=== PATIENT | male | born 1970 | race Caucasian/White ===

== ENCOUNTER 2020-12-06 11:31 | Outpatient (REF) | payer OTHER, SELFPAY | END 2020-12-06 11:32 | disposition home or self-care (01) | LOC: HO.LAB 11:31 | PROVIDERS: Visit Provider Nurse Practitioner Family | DX: Z20.822 Contact with and (suspected) exposure to COVID-19 (principal) | CPT/HCPCS: 36415; U0003 ==

== ENCOUNTER 2021-09-14 14:02 | Outpatient (REF) | payer OTHER, SELFPAY ==
--- NOTE | ~2021-09-14 | US_ITS ---
EXAMINATION: SCROTAL AND LIMITED PELVIC ULTRASOUND CLINICAL INFORMATION: Left lower quadrant pain and testicular pain COMPARISON: None TECHNIQUE: Scrotal ultrasound and left limited pelvic ultrasound in the left inguinal region using grayscale imaging. Doppler and color imaging of the testicles without waveform spectral analysis was also performed. Comparison imaging of the right inguinal region was also performed. FINDINGS: The testicles are normal in size and shape. The right measures 3.5 x 1.6 x 2.7 cm, volume 7.9 mL. The left measures 3.6 x 1.9 x 2.5 cm, volume 8.6 mL. There are bilateral small echogenic foci in both testicles suggestive of small calcifications or testicular microlithiasis. No other focal testicular lesion is seen. Doppler and color flow is documented to both testicles and is normal and symmetric. There is no evidence of torsion. There is a small right hydrocele. There is a small right varicocele. This appears partially thrombosed. There is a small left hydrocele. The right epididymis is normal. There is a small left varicocele. There is a small left hydrocele. The left epididymis is normal in size. The left epididymis is normal. There is asymmetric echogenic material seen in the left inguinal canal questionable for a hernia containing fat or lipoma of the cord. There are small bilateral inguinal lymph nodes. These are normal in size and demonstrate normal ultrasound morphology and flow. Largest left inguinal lymph node measures 1.9 x 0.8 x 1.9 cm. US/US pelvic limited IMPRESSION: No evidence of torsion. Bilateral testicular microlithiasis. No focal testicular lesion seen. Small bilateral hydroceles. Small bilateral varicoceles. Thrombus seen in the right sided varicocele or superficial thrombophlebitis. Echogenic material in the left inguinal canal questionable for hernia versus lipoma of the cord. Small bilateral inguinal lymph nodes.
== END 2021-09-14 14:03 | disposition home or self-care (01) ==
LOC: HO.HMGCX 14:02
PROVIDERS: Visit Provider Nurse Practitioner Family
DX: R10.32 Left lower quadrant pain (principal)
CPT/HCPCS: 76857; 76870

== ENCOUNTER → 2021-09-22 09:51 | Outpatient (BNVA) | payer OTHER, SELFPAY | PROVIDERS: PCP Internal Medicine; Referring Provider Internal Medicine; Visit Provider Surgery | DX: K40.90 Unilateral inguinal hernia, without obstruction or gangrene, not specified as recurrent (principal) | CPT/HCPCS: 99202 ==

== ENCOUNTER 2021-09-27 12:34 | Outpatient (REF) | payer OTHER, SELFPAY ==
[2021-09-27 13:24] LABS: Blood Urea Nitrogen 11 mg/dL (9-16); Estimated Glomerular Filt Rate > 60
== END 2021-09-27 12:35 | disposition home or self-care (01) ==
LOC: HO.LAB 12:34
PROVIDERS: Visit Provider Surgery
DX: K40.90 Unilateral inguinal hernia, without obstruction or gangrene, not specified as recurrent (principal)
CPT/HCPCS: 36415; 82565; 84520

== ENCOUNTER 2021-10-03 07:59 | Outpatient (REF) | payer OTHER, SELFPAY ==
--- NOTE | ~2021-10-03 | CT_ITS ---
EXAMINATION: CT PELVIS WITH CONTRAST CLINICAL INFORMATION: Unilateral inguinal hernia without obstruction COMPARISON: Pelvic ultrasound 09/14/2021 TECHNIQUE: Helical scanning was performed with submillimeter collimation through the pelvis with the use of oral contrast and during bolus intravenous injection of 85 mL of Omnipaque 350 intravenous contrast. Sagittal and coronal multiplanar 2-D reconstructions were obtained. This CT examination was performed using dose optimization techniques as appropriate, variously including the following: *Automated exposure control *Adjustment of mA and/or kV according to patient size (this includes techniques or standardized protocols for targeted exams where dose is matched to indication/reason for exam; i.e. extremities or head) *Use of iterative reconstruction technique DLP: 3.5 mGy-cm FINDINGS: No inguinal, femoral or suprapubic hernia is seen. There is a small umbilical hernia containing fat. There is mild diverticulosis of the colon. Visualized bowel is otherwise unremarkable. The appendix is unremarkable. The bladder is unremarkable. The prostate gland is unremarkable. No ascites or adenopathy is seen. Vascular structures are unremarkable. Bony structures are unremarkable. CT/CT pelvis w con IMPRESSION: No inguinal hernia seen. Mild diverticulosis of the colon. Small umbilical hernia containing fat.
[2021-10-03] MEDS: iohexoL 350 MG/ML 100 ML INFUS..BTL IV (09:14)
== END 2021-10-03 08:00 | disposition home or self-care (01) ==
LOC: HO.CT 07:59
PROVIDERS: Visit Provider Surgery
DX: R10.32 Left lower quadrant pain (principal)
CPT/HCPCS: 72193; Q9967

== ENCOUNTER → 2021-10-06 09:07 | Outpatient (BNVA) | payer OTHER, SELFPAY | PROVIDERS: Visit Provider Surgery | DX: S39.011A Strain of muscle, fascia and tendon of abdomen, initial encounter (principal) | CPT/HCPCS: 99212 ==

== ENCOUNTER → 2022-01-24 14:04 | Outpatient (BNVA) | payer OTHER, SELFPAY | PROVIDERS: PCP Internal Medicine; Visit Provider Urology | DX: R10.31 Right lower quadrant pain (principal); R10.32 Left lower quadrant pain; N43.3 Hydrocele, unspecified; T81.33XA Disruption of traumatic injury wound repair, initial encounter; F17.210 Nicotine dependence, cigarettes, uncomplicated | CPT/HCPCS: 99202 ==

== ENCOUNTER 2022-02-13 09:29 | Outpatient (REF) | payer OTHER, SELFPAY ==
[2022-02-13 10:32] LABS: Hematocrit 43.8 % (42.0-52.0); Hemoglobin 13.9 g/dl (14.0-18.0); Mean Corpuscular HGB Conc 31.7 g/dl (31.0-36.0); Mean Corpuscular Volume 97.6 fL (80.0-98.0); Mean Platelet Volume 9.8 fL (9.4-12.4); Platelet Count 246 X10*3/uL (160-400); Red Blood Count 4.49 X10*6/uL (4.60-5.80); Red Cell Distribution Width 13.2 % (11.0-16.0); White Blood Count 9.5 X10*3/uL (4.8-10.8)
[2022-02-13 10:59] LABS: Anion Gap 10 (12-20); Blood Urea Nitrogen 11 mg/dL (9-16); Calcium 10.1 mg/dL (8.4-10.2); Carbon Dioxide 25 mmol/L (22-29); Chloride 109 mmol/L (96-108); Cholesterol 248 mg/dL; Estimated Glomerular Filt Rate > 60; Glucose Fasting 88 mg/dL (60-99); HDL Cholesterol 37 mg/dL; LDL Cholesterol Calculated 151 mg/dl; Potassium 4.3 mmol/L (3.3-5.1); Sodium 140 mmol/L (135-145); Triglycerides 304 mg/dL
[2022-02-13 11:48] LABS: Prostate Specific Antigen Scr 0.73 ng/mL (<0.05-4.0); TSH reflex Free T4 1.03 uIU/mL (0.32-4.0)
== END 2022-02-13 09:30 | disposition home or self-care (01) ==
LOC: HO.LAB 09:29
PROVIDERS: PCP Internal Medicine; Visit Provider Nurse Practitioner Family
DX: Z12.5 Encounter for screening for malignant neoplasm of prostate (principal); F31.9 Bipolar disorder, unspecified; F41.9 Anxiety disorder, unspecified; E78.00 Pure hypercholesterolemia, unspecified
CPT/HCPCS: 36415; 80048; 80061; 84153; 84443; 85027

== ENCOUNTER → 2022-03-21 15:07 | Outpatient (REF) | payer OTHER, SELFPAY | LOC: HO.SL 15:07 | PROVIDERS: PCP Internal Medicine; Visit Provider Nurse Practitioner Family | DX: G47.30 Sleep apnea, unspecified (principal) | CPT/HCPCS: 95806 ==